=== PATIENT | female | born 1970 | race Hispanic/Latino ===

== ENCOUNTER → 2023-02-17 | Outpatient (CLI) | payer OTHER | LOC: US 08:45 | PROVIDERS: ATTEND Family Medicine | DX: R94.5 Abnormal results of liver function studies (principal) | CPT/HCPCS: 76705 ==

== ENCOUNTER → 2025-06-01 | Day surgery (SDC) | payer OTHER ==
[~2025-06-01] MED LIST: FAMOTIDINE 20 MG/2 ML VIAL IV ONE; GLYCOPYRROLATE INJ 0.2 MG/ML VIAL ONE; HYOSCYAMINE SULFATE 0.5 MG/ML INJ ONE; LIDOCAINE HCL 2% LOCAL INJ 5 ML SDV VIAL INJ ONE; OMEPRAZOLE40 MG PO; ONDANSETRON HCL INJ 2MG/ML 2ML 2 MG/ML VIAL ONE; PROPOFOL IV EMULSION 10 MG/ML 20 ML VIAL ONE; PROPOFOL IV EMULSION 50 ML IV ONE
[2025-06-01] MEDS: LACTATED RINGER'S 1,000 ML ONE (09:39)
[2025-06-01 11:30] VITALS: TEMP 97.1
[2025-06-01 11:50] VITALS: BP 121/72; PULSE 76; RESP 18; O2SAT 99
== END | disposition home or self-care (01) ==
LOC: OR 09:03
PROVIDERS: ATTEND Internal Medicine Gastroenterology
DX: Z12.11 Encounter for screening for malignant neoplasm of colon (principal); D12.5 Benign neoplasm of sigmoid colon; K63.5 Polyp of colon; K57.30 Diverticulosis of large intestine without perforation or abscess without bleeding; K64.8 Other hemorrhoids; Z01.810 Encounter for preprocedural cardiovascular examination
CPT/HCPCS: 45385; 93005; J1308; J1980; J2003; J2405; J2704 ×2; J7121; 45378